=== PATIENT | female | born 1960 | race Caucasian/White ===

== ENCOUNTER 2016-08-23 10:12 | Day surgery (SDC) | payer BC, MEDICARE ==
[~2016-08-23] VITALS: Ht 170.2 cm; Wt 116.8 kg
[~2016-08-23 10:12] MED LIST: AMLO5TAB2 PO; ASCO10007 PO; ASPI-515 PO; ATOR10TA9 PO; BIOT25004 PO; CHRO1TAB6 PO; DEXL60CA PO; DIAZ5TAB4 PO; ESCI5TAB PO; GABA600T2 PO; KERATIN PO; LACT1CAP35 PO; LAMO150T PO; LEVE500T8 PO; LEVO100T5 PO; LISI-170 PO; LISI40TA PO; LORA-446 PO; MULT-658 PO; OXYC-223 PO; OXYC15TA PO; OXYC60TA8 PO; PIOG30TA3 PO; PIOG45TA4 PO; TAMO20TA PO; TAPE100T3 PO; TIAG4TAB PO; TIZA4CAP PO; TIZA4TAB PO; VARE1TAB21 PO; VENL75TA PO; ZIPR60CA2 PO; [UNRECOGNIZED DRUG - CODE] PO
[2016-08-23] MEDS ORDERED: SODIUM CHLORIDE 0.9% 1,000 ML IV ONE (10:42)
[2016-08-23 10:57] VITALS: BP 134/86
[2016-08-23] MEDS ORDERED: ACETAMINOPHEN 325 MG TABLET PO PRN (11:00)
[2016-08-23] MEDS ORDERED: ONDANSETRON 2MG/ML, 2ML IVPush PRN (11:00)
[2016-08-23] MEDS ORDERED: ASPIRIN 325 MG TABLET EC PO ONE (11:00)
[2016-08-23] MEDS ORDERED: BISACODYL 5 MG EC TABLET PO PRN (11:00)
[2016-08-23] MEDS ORDERED: BISACODYL 10 MG SUPP PR PRN (11:00)
[2016-08-23] MEDS ORDERED: ZOLPIDEM 5MG TABLET PO PRN (11:00)
[2016-08-23] MEDS ORDERED: PLEASE ENTER HEIGHT AND WEIGHT MC SCH (11:00)
[2016-08-23] MEDS ORDERED: D-ME118S2 PO (11:04)
[2016-08-23] MEDS ORDERED: GUAI120L37 PO (11:04)
[2016-08-23] MEDS ORDERED: AMLO10TA4 PO (11:04)
[2016-08-23] MEDS ORDERED: ZIPR60CA3 PO (11:04)
[2016-08-23] MEDS ORDERED: ALBU6.7H IH (11:04)
[2016-08-23] MEDS ORDERED: LEVO88TA4 PO (11:04)
[2016-08-23] MEDS ORDERED: ASPI325T4 PO (11:04)
[2016-08-23] MEDS ORDERED: [UNRECOGNIZED DRUG - CODE] TP (11:04)
[2016-08-23] MEDS ORDERED: FURO-92 PO (11:04)
[2016-08-23] MEDS ORDERED: TAPE200T PO (11:04)
[2016-08-23] MEDS ORDERED: LORA-446 PO (11:04)
[2016-08-23] MEDS ORDERED: TRAM50TA2 PO (11:04)
[2016-08-23] MEDS ORDERED: ALBU8.5H3 IH (11:04)
[2016-08-23] MEDS ORDERED: TIAG4TAB PO (11:04)
[2016-08-23] MEDS ORDERED: BENZ200C40 PO (11:04)
[2016-08-23] MEDS ORDERED: ONDA-40 PO (11:04)
[2016-08-23] MEDS ORDERED: ESCI10TA10 PO (11:04)
[2016-08-23] MEDS ORDERED: POTA20TA89 PO (11:04)
[2016-08-23] MEDS ORDERED: BACL-19 PO (11:04)
[2016-08-23] MEDS ORDERED: CARV3.1212 PO (11:08)
[2016-08-23] MEDS ORDERED: FENTANYL PF 100 MCG/2ML ONE (13:48)
[2016-08-23] MEDS ORDERED: MIDAZOLAM 1 MG/ML, 5ML ONE (13:48)
[2016-08-23] MEDS ORDERED: VERAPAMIL 2.5 MG/ML, 2ML ONE (13:49)
[2016-08-23] MEDS ORDERED: BIVALIRUDIN 250 MG ONE (13:49)
[2016-08-23] MEDS ORDERED: TICAGRELOR 90 MG TABLET ONE (13:49)
[2016-08-23] MEDS ORDERED: HEPARIN 1,000 UNITS/ML, 10ML ONE (13:49)
[2016-08-23] MEDS ORDERED: LIDOCAINE 2%, 20ML ONE (13:50)
[2016-08-23] MEDS ORDERED: DIPHENHYDRAMINE 50 MG/ML, 1ML ONE (14:13)
[2016-08-23] MEDS ORDERED: SODIUM CHLORIDE 0.9% 1,000 ML IV SCH (14:38)
== END 2016-08-23 16:19 ==
LOC: CACL 10:12
PROVIDERS: ATTEND Internal Medicine Cardiovascular Disease
DX: I42.9 Cardiomyopathy, unspecified (principal); I10 Essential (primary) hypertension; E11.9 Type 2 diabetes mellitus without complications; E78.5 Hyperlipidemia, unspecified; E03.9 Hypothyroidism, unspecified; Z96.652 Presence of left artificial knee joint
CPT/HCPCS: 93005; 93458; C1894; J1200; J1644; J2250; J3010; J3490; Q9967; J0583

== ENCOUNTER → 2016-10-20 | Outpatient (CLI) | payer BC, MEDICARE ==
[~2016-10-20] MED LIST changes: +ALBU6.7H IH; +ALBU8.5H3 IH; +AMLO10TA4 PO; +ASPI325T4 PO; +BACL-19 PO; +BENZ200C40 PO; +CARV3.1212 PO; +D-ME118S2 PO; +ESCI10TA10 PO; +FURO-92 PO; +GUAI120L37 PO; +LEVO88TA4 PO; +ONDA-40 PO; +POTA20TA89 PO; +TAPE200T PO; +TRAM50TA2 PO; +ZIPR60CA3 PO; +[UNRECOGNIZED DRUG - CODE] TP
== END | disposition home or self-care (01) ==
LOC: CFH 12:22
PROVIDERS: ATTEND Family Medicine
DX: Z12.31 Encounter for screening mammogram for malignant neoplasm of breast (principal)
CPT/HCPCS: G0202

== ENCOUNTER → 2017-11-23 | Outpatient (CLI) | payer BC, MEDICARE ==
[~2017-11-23] MED LIST changes: -ALBU8.5H3 IH; +ALBU8.5H8 IH; +ASCO100019 PO; -ASCO10007 PO; +ASPI325T17 PO; -ASPI325T4 PO; -BENZ200C40 PO; +BENZ200C48 PO; -BIOT25004 PO; +BIOT25005 PO; -DEXL60CA PO; +DEXL60CA2 PO; -LAMO150T PO; +LAMO150T2 PO; -ONDA-40 PO; +ONDA8TAB15 PO; -OXYC-223 PO; +OXYC-306 PO; -PIOG30TA3 PO; +PIOG30TA67 PO; -TAPE100T3 PO; +TAPE100T6 PO; -TIAG4TAB PO; +TIAG4TAB18 PO
== END | disposition home or self-care (01) ==
LOC: CFH 12:39
PROVIDERS: ATTEND Nurse Practitioner
DX: Z12.31 Encounter for screening mammogram for malignant neoplasm of breast (principal); Z12.2 Encounter for screening for malignant neoplasm of respiratory organs; E11.9 Type 2 diabetes mellitus without complications; Z87.891 Personal history of nicotine dependence; Z85.3 Personal history of malignant neoplasm of breast
CPT/HCPCS: 77067; G0297

== ENCOUNTER → 2017-12-14 | Outpatient (CLI) | payer BC, MEDICARE | END | disposition home or self-care (01) | LOC: PETCFH 12-13 12:18 | PROVIDERS: ATTEND Nurse Practitioner | DX: Z02.9 Encounter for administrative examinations, unspecified (principal) ==

== ENCOUNTER → 2018-01-28 | Outpatient (CLI) | payer BC, MEDICARE ==
[~2018-01-28] MED LIST changes: -AMLO5TAB2 PO; +AMLO5TAB7 PO
== END | disposition home or self-care (01) ==
LOC: RAD 15:54
PROVIDERS: ATTEND Internal Medicine
DX: K76.0 Fatty (change of) liver, not elsewhere classified (principal); R16.0 Hepatomegaly, not elsewhere classified; J98.11 Atelectasis
CPT/HCPCS: 71250

== ENCOUNTER → 2018-03-08 | Outpatient (CLI) | payer BC, MEDICARE ==
[~2018-03-08] MED LIST changes: +REGADENOSON 0.4 MG/5 ML SYRINGE ONE
== END | disposition home or self-care (01) ==
LOC: CFH 08:05
PROVIDERS: ATTEND Internal Medicine Cardiovascular Disease
DX: I50.9 Heart failure, unspecified (principal); I11.0 Hypertensive heart disease with heart failure; R94.31 Abnormal electrocardiogram [ECG] [EKG]
CPT/HCPCS: 78452; 93017; A9502; J2785